=== PATIENT | female | born 2000 | race Caucasian/White ===

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

== ENCOUNTER → 2023-05-26 | Outpatient (CLI) | payer OTHER ==
[~2023-05-26] MED LIST: CLEO300C2 PO
[2023-05-26 11:01] LABS: BASO # 0.1 10^3/uL (0.0-0.2); BASO % 1.1 % (0.0-1.0); EOS # 0.1 10^3/uL (0.0-0.5); EOS % 0.9 % (0.0-3.0); HEMATOCRIT 44.9 % (36.0-47.0); HEMOGLOBIN 14.7 g/dl (12.0-15.5); LYMPH # 2.1 10^3/uL (1.5-5.0); LYMPH % 36.9 % (24.0-44.0); MEAN CORPUSCULAR HEMOGLOBIN 27.7 pg (27.0-33.0); MEAN CORPUSCULAR HGB CONC 32.7 g/dl (32.0-36.5); MEAN CORPUSCULAR VOLUME 84.6 fl (80.0-96.0); MONO # 0.7 10^3/uL (0.0-0.8); MONO % 12.2 % (2.0-8.0); NEUTROPHILS # 2.8 10^3/uL (1.5-8.5); NEUTROPHILS % 48.7 % (36.0-66.0); PLATELET COUNT, AUTOMATED 333 10^3/uL (150-450); RED BLOOD COUNT 5.31 10^6/uL (4.00-5.40); WHITE BLOOD COUNT 5.6 10^3/uL (4.0-10.0)
[2023-05-26 11:22] LABS: FREE T4 1.17 NG/DL (0.89-1.76)
[2023-05-26 11:23] LABS: TOTAL 25(OH) VITAMIN D 31.6 NG/ML (20.0-100.0)
[2023-05-26 11:24] LABS: ALBUMIN 4.2 G/DL (3.2-5.2); ALKALINE PHOSPHATASE 58 U/L (46-116); ALT/SGPT 14 U/L (7.0-40); AST/SGOT 11 U/L (<34); BILIRUBIN,TOTAL 1.3 MG/DL (0.3-1.2); BLOOD UREA NITROGEN 9 MG/DL (9-23); CALCIUM LEVEL 9.6 MG/DL (8.5-10.1); CARBON DIOXIDE LEVEL 26 MMOL/L (20-31); CHLORIDE LEVEL 105 MMOL/L (98-107); CREATININE FOR GFR 0.75 MG/DL (0.55-1.30); GLOMERULAR FILTRATION RATE > 60.0 (>60); GLUCOSE, FASTING 74 MG/DL (60-100); POTASSIUM SERUM 4.3 MMOL/L (3.5-5.1); SODIUM LEVEL 137 MMOL/L (136-145); TOTAL PROTEIN 7.2 G/DL (5.7-8.2)
== END ==
LOC: M LAB 08:57
PROVIDERS: ATTEND Nurse Practitioner Family
DX: E55.9 Vitamin D deficiency, unspecified (principal); R53.83 Other fatigue

== ENCOUNTER 2024-05-07 20:57 | Inpatient (IN) | payer OTHER ==
[~2024-05-07] VITALS: Ht 165.1 cm; Wt 80.5 kg
[2024-05-07 21:57] LABS: BASO # 0.1 10^3/uL (0.0-0.2); BASO % 0.6 % (0.0-1.0); EOS # 0.1 10^3/uL (0.0-0.5); EOS % 0.9 % (0.0-3.0); HEMOGLOBIN 11.2 g/dl (12.0-15.5); LYMPH # 2.4 10^3/uL (1.5-5.0); LYMPH % 29.9 % (24.0-44.0); MEAN CORPUSCULAR HEMOGLOBIN 28.7 pg (27.0-33.0); MEAN CORPUSCULAR HGB CONC 32.9 g/dl (32.0-36.5); MEAN CORPUSCULAR VOLUME 87.2 fl (80.0-96.0); MONO % 12.2 % (2.0-8.0); NEUTROPHILS # 4.4 10^3/uL (1.5-8.5); NEUTROPHILS % 56.3 % (36.0-66.0); PLATELET COUNT, AUTOMATED 260 10^3/uL (150-450); WHITE BLOOD COUNT 7.9 10^3/uL (4.0-10.0)
[2024-05-07] MEDS: NS (Normal Saline) 0.9% 1,000 ML IV ONE (22:20)
[2024-05-07 22:23] LABS: AMPHETAMINES LEVEL URINE NEGATIVE (NEGATIVE); COCAINE METABOLITE URINE NEGATIVE (NEGATIVE)
[2024-05-07 22:24] LABS: BARBITURATES URINE NEGATIVE (NEGATIVE); BENZODIAZEPINES URINE NEGATIVE (NEGATIVE); CANNABINOIDS URINE NEGATIVE (NEGATIVE); METHADONE URINE NEGATIVE (NEGATIVE); OPIATES URINE NEGATIVE (NEGATIVE); PHENCYCLIDINE URINE NEGATIVE (NEGATIVE)
[2024-05-07 22:27] LABS: ETHYL ALCOHOL (ETHANOL) < 0.003 % (0.000-0.010)
[2024-05-07 22:28] LABS: SALICYLATE LEVEL < 3.0 MG/DL (<30)
[2024-05-07 22:29] LABS: ALBUMIN 3.4 G/DL (3.2-5.2); ALKALINE PHOSPHATASE 40 U/L (35-104); ALT/SGPT 20 U/L (7.0-40); AST/SGOT 23 U/L (<34); BILIRUBIN,DIRECT 0.2 MG/DL (<0.4); BILIRUBIN,TOTAL 0.5 MG/DL (0.3-1.2); BLOOD UREA NITROGEN 11 MG/DL (9-23); CALCIUM LEVEL 8.1 MG/DL (8.5-10.1); CARBON DIOXIDE LEVEL 27 MMOL/L (20-31); CHLORIDE LEVEL 104 MMOL/L (98-107); CPK CREATINE PHOSPHOKINASE 117 U/L (34-145); CREATININE FOR GFR 0.72 MG/DL (0.55-1.30); GLOMERULAR FILTRATION RATE > 60.0 (>60); GLUCOSE, FASTING 89 MG/DL (60-100); POTASSIUM SERUM 3.6 MMOL/L (3.5-5.1); SODIUM LEVEL 141 MMOL/L (136-145)
[2024-05-07 22:31] LABS: THYROID STIMULATING HORMONE 7.293 uIU/ML (0.55-4.78)
[2024-05-08] MEDS ORDERED: SERTRALINE (07:41)
[2024-05-08] MEDS ORDERED: SPIR50TA4 PO (07:41)
[2024-05-08] MEDS ORDERED: BUSP5TA PO (07:41)
[2024-05-08] MEDS ORDERED: LORAPOW30 (07:41)
[2024-05-08] MEDS ORDERED: ATIV1TAB10 PO (09:51)
[2024-05-08] MEDS ORDERED: ZOLO100T PO (09:51)
[2024-05-08] MEDS ORDERED: MED REC CURRENTLY UNOBTAINABLE XX SCH (09:55)
[2024-05-08] MEDS ORDERED: GLUCOSE 4 GM CHEW PO PRN (12:00)
[2024-05-08] MEDS: NS (Normal Saline) 0.9% 1,000 ML IV SCH (12:00)
[2024-05-08] MEDS ORDERED: GLUCAGON INJ 1MG VIAL SC PRN (12:00)
[2024-05-08] MEDS ORDERED: DEXTROSE 50% 50ML SYRINGE IV PRN (12:00)
[2024-05-08] MEDS ORDERED: HOME MED LIST COMPLETE! XX SCH (16:40)
[2024-05-08 17:35] VITALS: BP 99/55; TEMP 98.4; O2SAT 94; O2SAT 99
[2024-05-09 09:00] VITALS: BP 101/53; TEMP 98.6; O2SAT 96
[2024-05-09] MEDS: ENOXAPARIN 40MG/0.4ML SYRINGE (J1650 PER 10MG) SC SCH (11:36)
[2024-05-09 12:00] VITALS: BP 102/52; TEMP 98.1; O2SAT 95
[2024-05-09] MEDS: D5W/0.9% SODIUM CHLORIDE 1,000 ML IV SCH (14:16)
[2024-05-09 14:58] LABS: BLOOD UREA NITROGEN 10 MG/DL (9-23); CALCIUM LEVEL 7.9 MG/DL (8.5-10.1); CARBON DIOXIDE LEVEL 24 MMOL/L (20-31); CHLORIDE LEVEL 109 MMOL/L (98-107); CREATININE FOR GFR 0.64 MG/DL (0.55-1.30); GLOMERULAR FILTRATION RATE > 60.0 (>60); GLUCOSE, FASTING 78 MG/DL (60-100); MAGNESIUM LEVEL 1.9 MG/DL (1.8-2.4); POTASSIUM SERUM 3.6 MMOL/L (3.5-5.1); SODIUM LEVEL 144 MMOL/L (136-145)
[2024-05-09 16:00] VITALS: BP 118/62; TEMP 98.4; O2SAT 95
[2024-05-09 20:00] VITALS: BP 114/62; TEMP 98.2; O2SAT 95
[2024-05-10] VITALS: BP 113/65; TEMP 97.9; O2SAT 95
[2024-05-10 04:00] VITALS: BP 114/66; TEMP 98.6; O2SAT 95
[2024-05-10 12:00] VITALS: BP 105/64; TEMP 97.9; O2SAT 99
[2024-05-10 20:00] VITALS: BP 106/63; TEMP 97.9; O2SAT 97
[2024-05-11 06:00] VITALS: BP 121/73; TEMP 98.4; O2SAT 97
[2024-05-11 21:30] VITALS: BP 119/70; TEMP 98.2; O2SAT 97
[2024-05-12 04:17] VITALS: BP 124/85; TEMP 97.9; O2SAT 97
[2024-05-12 12:00] VITALS: BP 127/79; TEMP 97; O2SAT 95
[2024-05-12] MEDS: ACETAMINOPHEN 325 MG TAB PO PRN (12:03)
[2024-05-12] MEDS ORDERED: ATIV1TAB10 PO (22:29)
== END 2024-05-12 15:37 | DRG 918 ==
LOC: M ED 20:57 → EDBD 20:57 → M ED INP 20:58 → M MSPAV 05-08 17:26 → OBSVTOIN 05-10 13:49 → M MSPAV 05-12 10:58
PROVIDERS: ADMIT Student in an Organized Health Care Education/Training Program; ATTEND Student in an Organized Health Care Education/Training Program
DX: T43.592A Poisoning by other antipsychotics and neuroleptics, intentional self-harm, initial encounter (principal); R45.851 Suicidal ideations; T42.4X2A Poisoning by benzodiazepines, intentional self-harm, initial encounter; F32.A Depression, unspecified; F41.9 Anxiety disorder, unspecified; Z79.899 Other long term (current) drug therapy

== ENCOUNTER 2024-05-12 15:11 | Inpatient (IN) | payer OTHER ==
[~2024-05-12] VITALS: Ht 165.1 cm; Wt 70.4 kg
[~2024-05-12 15:11] MED LIST changes: +ATIV1TAB10 PO; +BUSP5TA PO; +LORAPOW30; +SERTRALINE; +SPIR50TA4 PO; +ZOLO100T PO
[2024-05-12] MEDS ORDERED: MAALOX 30 ML SUSP *UDC PO PRN (15:20)
[2024-05-12] MEDS ORDERED: OLANZapine ORAL DISINTEGRATING TAB 5MG PO PRN (15:20)
[2024-05-12] MEDS ORDERED: IBUPROFEN 400MG TAB PO PRN (15:20)
[2024-05-12] MEDS ORDERED: MOM 30ML SUSPENSION UDC PO PRN (15:20)
[2024-05-12] MEDS ORDERED: ACETAMINOPHEN 325 MG TAB PO PRN (15:20)
[2024-05-12] MEDS: diphenhydrAMINE 25MG CAP PO PRN (17:13)
[2024-05-12 17:32] VITALS: BP 131/80; TEMP 98; O2SAT 98
[2024-05-12] MEDS: traZODone 50 MG TAB PO PRN (20:20)
[2024-05-12] MEDS ORDERED: ATIV1TAB10 PO (22:29)
[2024-05-12] MEDS ORDERED: HOME MED LIST COMPLETE! XX SCH (22:30)
[2024-05-13 06:21] VITALS: BP 138/78; TEMP 97.3; O2SAT 97
[2024-05-13] MEDS ORDERED: hydrOXYzine 50 MG TAB PO PRN (07:50)
[2024-05-13] MEDS: busPIRone 10 MG TAB PO SCH (09:49)
[2024-05-13] MEDS: SERTRALINE 100 MG TAB PO SCH (09:49)
[2024-05-13] MEDS: SPIRONOLACTONE 50 MG TAB PO SCH (09:49)
[2024-05-13 15:25] VITALS: BP 123/68; TEMP 98.7; O2SAT 100
[2024-05-13 19:22] LABS: HCG, SERUM QUALITATIVE NEGATIVE (NEGATIVE)
[2024-05-14 06:20] VITALS: BP 106/58; TEMP 97.5; O2SAT 99
[2024-05-14] MEDS: SPIRONOLACTONE 50 MG TAB PO SCH (14:51)
[2024-05-14 15:14] VITALS: BP 120/65; TEMP 98.6; O2SAT 100
[2024-05-15 06:26] VITALS: BP 121/68; TEMP 98; O2SAT 99
[2024-05-15] MEDS ORDERED: ZOLO100T PO (09:54)
[2024-05-15] MEDS ORDERED: BUSP10TA PO (09:54)
== END 2024-05-15 13:33 | disposition home or self-care (01) | DRG 881 ==
LOC: M PSY 15:47
PROVIDERS: ADMIT Psychiatry & Neurology Psychiatry; ATTEND Psychiatry & Neurology Psychiatry
DX: F32.A Depression, unspecified (principal); R45.851 Suicidal ideations; F32.9 Major depressive disorder, single episode, unspecified; F41.1 Generalized anxiety disorder; Z79.899 Other long term (current) drug therapy

== ENCOUNTER → 2024-06-05 | Outpatient (CLI) | payer OTHER ==
[~2024-06-05] MED LIST changes: +BUSP10TA PO
[2024-06-05 15:13] LABS: ALBUMIN 3.6 G/DL (3.2-5.2); ALKALINE PHOSPHATASE 45 U/L (35-104); ALT/SGPT 28 U/L (7.0-40); AST/SGOT 18 U/L (<34); BILIRUBIN,TOTAL 0.3 MG/DL (0.3-1.2); BLOOD UREA NITROGEN 11 MG/DL (9-23); CALCIUM LEVEL 8.8 MG/DL (8.5-10.1); CARBON DIOXIDE LEVEL 29 MMOL/L (20-31); CHLORIDE LEVEL 108 MMOL/L (98-107); CREATININE FOR GFR 0.64 MG/DL (0.55-1.30); GLOMERULAR FILTRATION RATE > 60.0 (>60); GLUCOSE, FASTING 92 MG/DL (60-100); POTASSIUM SERUM 4.2 MMOL/L (3.5-5.1); SODIUM LEVEL 143 MMOL/L (136-145); TOTAL PROTEIN 6.6 G/DL (5.7-8.2)
== END ==
LOC: M LAB 14:08
PROVIDERS: ATTEND Nurse Practitioner Family
DX: L70.0 Acne vulgaris (principal); Z79.899 Other long term (current) drug therapy; Z51.81 Encounter for therapeutic drug level monitoring